=== PATIENT | female | born 1990 | race American Indian/Alaskan Native ===

== ENCOUNTER 2016-06-21 08:56 | Emergency (ER) | payer MEDICAID ==
--- NOTE | 2016-06-21 09:31 | Emergency Department Report ---
Chief Complaint: Vaginal Bleeding Stated Complaint: VAGINAL BLEEDING Time Seen by Provider: 06/21/16 09:27 - HPI History of Present Illness: This is a 26-year-old female who reports that she had confirmed at [place]. She says she had been bleeding since June 08, 2016 on and off. She says she uses 6-7 pads a day that is not saturated. She reports back pain and denies any abdominal pain. Back pain is 6 out of 10. Denies any urinary burning frequency or urgency. Denies any fever or chills. - ROS Review of Systems: All systems are negative unless stated in HPI above. - Exam Vital Signs: Vital Signs 06/21/16 09:04 Temperature 98.5 F Pulse Rate 87 Respiratory 18 Rate Blood Pressure 122/79 O2 Sat by Pulse 100 Oximetry Physical Exam: General: This is a 26-year-old female well-nourished well-developed in no acute distress. Abdomen: Nontender to palpate in all quadrants. No guarding or rebound tenderness. Normal bowel sounds in all quadrants. CV: S1, S2. Regular Rate and rhythm MSE screening note: Focused history and physical exam performed. Due to findings the following was ordered:see the [facility] ED Medical Decision Making - Lab Data Result diagrams: 06/21/16 09:13 - Medical Decision Making Medical decision making: Patient seen by provider in triage area. Appropriate protocol activated and patient to main ED to be seen by physician. ED Disposition for MSE Condition: Stable
[2016-06-21 09:43] LABS: Basophils % (Auto) 0.4 % (0.0-1.8); Eosinophils % (Auto) 3.4 % (0.0-4.3); Hematocrit 38.9 % (30.3-42.9); Hemoglobin 12.6 gm/dl (10.1-14.3); Mean Corpuscular HGB Conc 32 % (30-34); Mean Corpuscular Volume 79 fl (79-97); Platelet Count 372 K/mm3 (140-440); Red Blood Count 4.94 M/mm3 (3.65-5.03); Red Cell Distribution Width 15.1 % (13.2-15.2); White Blood Count 9.1 K/mm3 (4.5-11.0)
[2016-06-21 09:52] LABS: Mean Corpuscular Hemoglobin 26 pg (28-32)
--- NOTE | 2016-06-21 11:47 | Ultrasound Report ---
ULTRASOUND OB LESS THAN 14 WEEKS ULTRASOUND OB TRANSVAGINAL HISTORY: Vaginal bleeding during , back pain. FINDINGS: Beta hCG level measured 101. Transabdominal and transvaginal ultrasound images were obtained. The uterus measures 9 x 4 x 6 cm. No intrauterine or heart rate is demonstrated. The endometrial stripe measures 9.9 mm on transvaginal imaging. The right ovary measures 3.8 x 2.6 x 2.2 cm. 1.4 cm hypoechoic area probably represents a corpus luteum cyst. The left ovary is enlarged measuring 5.6 x 3.4 x 3.9 cm. There is a 1.9 cm cyst with a single internal septation. There is also a 2.7 cm solid hyperechoic mass in the right ovary consistent with a dermoid. No pelvic fluid. IMPRESSION: No intrauterine is demonstrated at this time. This could represent a very early normal or complete . Please note that an ectopic is not entirely excluded at this time. Close interval followup is recommended. Left ovarian cyst and dermoid.
[2016-06-21 12:35] VITALS: BP 118/78
--- NOTE | 2016-06-21 12:48 | Emergency Department Report ---
ED General Adult HPI - General Chief complaint: Vaginal Bleeding Stated complaint: VAGINAL BLEEDING Time Seen by Provider: 06/21/16 09:27 Source: patient Mode of arrival: Ambulatory Limitations: No Limitations - History of Present Illness Initial comments: Patient states that she's had vaginal bleeding for 2 weeks now. She went to the [facility] over a week ago. She states that she had a beta hCG measured at that time and found to be 1:30. She presents here today for continued bleeding. Her repeat hCG is still positive at 101. An ultrasound was obtained. She does not complain of current bleeding nor any pelvic pain. She states that she's had an "when she was young" and a miscarriage 2 years ago. She has never had any prior laparoscopic surgery. -: week(s) Quality: other (does not complain of abdominal or pelvic pain) Associated Symptoms: denies other symptoms Treatments Prior to Arrival: none - Related Data Home Medications Medication Instructions Recorded Confirmed Last Taken No Known Home Medications [No 06/21/16 06/21/16 Unknown Reported Home Medications] Allergies Allergy/AdvReac Type Severity Reaction Status Date / Time No Known Allergies Allergy Unverified 06/21/16 09:04 ED Review of Systems ROS: Stated complaint: VAGINAL BLEEDING Other details as noted in HPI Constitutional: denies: chills, fever Eyes: denies: eye pain, eye discharge, vision change ENT: denies: ear pain, throat pain Respiratory: denies: cough, shortness of breath, wheezing Cardiovascular: denies: chest pain, palpitations Endocrine: no symptoms reported Gastrointestinal: denies: abdominal pain, nausea, diarrhea Genitourinary: abnormal menses. denies: urgency, dysuria, discharge Musculoskeletal: denies: back pain, joint swelling, arthralgia Skin: denies: rash, lesions Neurological: denies: headache, weakness, paresthesias Psychiatric: denies: anxiety, depression Hematological/Lymphatic: denies: easy bleeding, easy bruising ED Past Medical Hx - Past Medical History Previous Medical History?: Yes Additional medical history: miscarriage x 1 - Surgical History Past Surgical History?: Yes Additional Surgical History: - Social History Smoking Status: Current Every Day Smoker Substance Use Type: Alcohol, Prescribed - Medications Home Medications: Home Medications Medication Instructions Recorded Confirmed Last Taken Type No Known Home Medications [No 06/21/16 06/21/16 Unknown History Reported Home Medications] ED Physical Exam - General Limitations: No Limitations General appearance: alert, in no apparent distress - Head Head exam: Present: atraumatic, normocephalic - Eye Eye exam: Present: normal appearance. Absent: scleral icterus - ENT ENT exam: Present: mucous membranes moist - Neck Neck exam: Present: normal inspection - Respiratory Respiratory exam: Present: normal lung sounds bilaterally. Absent: respiratory distress - Cardiovascular Cardiovascular Exam: Present: regular rate, normal rhythm. Absent: systolic murmur, diastolic murmur, rubs, gallop - GI/Abdominal GI/Abdominal exam: Present: soft, normal bowel sounds. Absent: distended, tenderness, guarding, rebound, rigid, mass, bruit, pulsatile mass, hernia - Extremities Exam Extremities exam: Present: normal inspection - Back Exam Back exam: Present: normal inspection - Neurological Exam Neurological exam: Present: alert, oriented X3, CN II-XII intact. Absent: motor sensory deficit - Psychiatric Psychiatric exam: Present: normal affect, normal mood - Skin Skin exam: Present: warm, dry, intact, normal color. Absent: rash ED Course Vital Signs 06/21/16 06/21/16 09:04 12:33 Temperature 98.5 F 98.3 F Pulse Rate 87 88 Respiratory 18 18 Rate Blood Pressure 122/79 Blood Pressure 118/78 [Right] O2 Sat by Pulse 100 100 Oximetry ED Medical Decision Making - Lab Data Result diagrams: 06/21/16 09:13 Laboratory Results - last 24 hr 06/21/16 06/21/16 06/21/16 09:13 09:13 09:13 WBC 9.1 RBC 4.94 Hgb 12.6 Hct 38.9 MCV 79 MCH 26 L MCHC 32 RDW 15.1 Plt Count 372 Lymph % (Auto) 26.1 [place] % (Auto) 7.5 H Eos % (Auto) 3.4 Baso % (Auto) 0.4 Lymph # 2.4 [place] # 0.7 Eos # 0.3 Baso # 0.0 Seg Neutrophils % 62.6 Seg Neutrophils # 5.7 HCG, Quant 101.1 H Blood Type O POSITIVE Antibody Screen Negative - Radiology Data Radiology results: report reviewed interpreted by me: No intrauterine - Medical Decision Making The patient stratifies to follow-up with repeat beta hCGs. The risk of ectopic has been explained. Patient will follow-up at [place]. Critical care attestation.: If time is entered above; I have spent that time in minutes in the direct care of this critically ill patient, excluding procedure time. ED Disposition Clinical Impression: First trimester bleeding Disposition: DISCHARGED TO HOME OR SELFCARE Is pt being admited?: No Does the pt Need Aspirin: No Condition: Stable Time of Disposition: 13:55
== END 2016-06-21 14:31 | disposition home or self-care (01) ==
LOC: ED 08:56
DX: O20.9 Hemorrhage in early pregnancy, unspecified (principal); Z3A.00 Weeks of gestation of pregnancy not specified; F17.200 Nicotine dependence, unspecified, uncomplicated
CPT/HCPCS: 36415; 76801; 76817; 84702; 85025; 86850; 86900; 86901

== ENCOUNTER 2018-01-24 18:27 | Emergency (ER) | payer MEDICAID ==
[2018-01-24 18:34] VITALS: BP 151/84
[2018-01-24] MEDS ORDERED: MOTRIN PO ONE (20:58)
[2018-01-24] MEDS ORDERED: PROVENTIL IH ONE (20:58)
--- NOTE | 2018-01-24 20:58 | Emergency Department Report ---
- General Chief Complaint: Upper Respiratory Infection Stated Complaint: ASMTHMA/SOB/CHECK UP Time Seen by Provider: 01/24/18 20:53 Source: patient Mode of arrival: Ambulatory Limitations: No Limitations - History of Present Illness Initial Comments: 27-year-old -Iranian female comes in for cough congestion and shortness of breath since yesterday. Patient admits to nasal congestion and body aches cough and sore throat. Patient is able to speak in complete sentences. Patient also reports some old blood in the vaginal area using panty liner. Patient's last menstrual. Was 01/02/2018. She does not have a primary care provider. She reports that she ran out of her asthma medicine and she usually needs it only if she gets a cold. MD Complaint: cough, sore throat, rhinorrhea, nasal congestion -: days(s) (1) Severity: mild Consistency: intermittent Improves With: other (is not tried anything) Associated Symptoms: nasal congestion, sore throat, cough, shortness of breath Treatments Prior to Arrival: none - Related Data Previous Rx's Medication Instructions Recorded Last Taken Type ALBUTEROL Inhaler [ProAir HFA 2 puff IH QID PRN #1 inhalation 01/24/18 Unknown Rx Inhaler] Cetirizine HCl [ZyrTEC] 10 mg PO QDAY #30 capsule 01/24/18 Unknown Rx Fluticasone [Flonase] 1 spray NS QDAY #1 bottle 01/24/18 Unknown Rx Allergies Allergy/AdvReac Type Severity Reaction Status Date / Time No Known Allergies Allergy Verified 01/24/18 18:32 ED Review of Systems ROS: Stated complaint: ASMTHMA/SOB/CHECK UP Other details as noted in HPI Constitutional: malaise Eyes: denies: eye pain, eye discharge, vision change ENT: throat pain, congestion. denies: ear pain Respiratory: cough Cardiovascular: denies: chest pain, palpitations Endocrine: no symptoms reported Gastrointestinal: denies: abdominal pain, nausea, diarrhea Genitourinary: denies: urgency, dysuria, discharge Musculoskeletal: denies: back pain, joint swelling, arthralgia Skin: denies: rash, lesions Neurological: denies: headache, weakness, paresthesias Psychiatric: denies: anxiety, depression Hematological/Lymphatic: denies: easy bleeding, easy bruising ED Past Medical Hx - Past Medical History Hx Asthma: Yes Additional medical history: miscarriage x 1 - Surgical History Additional Surgical History: - Social History Smoking Status: Current Every Day Smoker Substance Use Type: Alcohol - Medications Home Medications: Home Medications Medication Instructions Recorded Confirmed Last Taken Type ALBUTEROL Inhaler [ProAir HFA 2 puff IH QID PRN #1 inhalation 01/24/18 Unknown Rx Inhaler] Cetirizine HCl [ZyrTEC] 10 mg PO QDAY #30 capsule 01/24/18 Unknown Rx Fluticasone [Flonase] 1 spray NS QDAY #1 bottle 01/24/18 Unknown Rx ED Physical Exam - General Limitations: No Limitations General appearance: alert, in no apparent distress - Head Head exam: Present: atraumatic, normocephalic - Eye Eye exam: Present: PERRL, EOMI - ENT ENT exam: Present: mucous membranes moist - Neck Neck exam: Present: normal inspection, full ROM. Absent: lymphadenopathy - Respiratory Respiratory exam: Present: wheezes - Cardiovascular Cardiovascular Exam: Present: regular rate, normal rhythm. Absent: systolic murmur, diastolic murmur, rubs, gallop - GI/Abdominal GI/Abdominal exam: Present: soft, normal bowel sounds - Extremities Exam Extremities exam: Present: normal inspection - Back Exam Back exam: Present: normal inspection - Neurological Exam Neurological exam: Present: alert, oriented X3 - Psychiatric Psychiatric exam: Present: normal affect, normal mood - Skin Skin exam: Present: warm, dry, intact, normal color. Absent: rash ED Course Vital Signs 01/24/18 18:32 Temperature 99.9 F H Pulse Rate 114 H Respiratory 16 Rate Blood Pressure 151/84 O2 Sat by Pulse 97 Oximetry ED Medical Decision Making - Radiology Data Radiology results: report reviewed, image reviewed FINAL REPORT PROCEDURE: XR CHEST ROUTINE 2V TECHNIQUE: PA and lateral chest radiographs were obtained. CPT 67779 HISTORY: back pain with breathing COMPARISON: No prior studies are available for comparison. FINDINGS: Heart: Normal. Mediastinum/Vessels: Normal. Lungs/Pleural space: Normal. Bony thorax: No acute osseous abnormality. Other: IMPRESSION: Normal examination. Transcribed By: [facility] [place] Dictated By: MILADY JESSICA Electronically Authenticated By: MILADY JESSICA Signed Date/Time: 01/24/182331 DD/ 31 TD/TT: 01/24/182 - Medical Decision Making Patient has been evaluated with this provider in fast track. Patient is given ibuprofen for pain management Patient's given a nebulizer treatment for the wheeze. Patient is given Tessalon Perles for cough. Critical care attestation.: If time is entered above; I have spent that time in minutes in the direct care of this critically ill patient, excluding procedure time. ED Disposition Clinical Impression: Allergic rhinitis Qualifiers: Allergic rhinitis trigger: unspecified Allergic rhinitis seasonality: seasonal Qualified Code(s): J30.2 - Other seasonal allergic rhinitis Disposition: - TO HOME OR SELFCARE Is pt being admited?: No Does the pt Need Aspirin: No Condition: Stable Instructions: Allergic Rhinitis (ED) Additional Instructions: Take medication as prescribed. If her symptoms persist follow up with your primary care provider. Prescriptions: ALBUTEROL Inhaler [ProAir HFA Inhaler] 2 puff IH QID PRN #1 inhalation PRN Reason: Shortness Of Breath Cetirizine HCl [ZyrTEC] 10 mg PO QDAY #30 capsule Fluticasone [Flonase] 1 spray NS QDAY #1 bottle Referrals: PRIMARY CARE, [Primary Care Provider] - 3-5 Days [facility] [Provider Group] - 3-5 Days Forms: Work/School Release Form(ED), Accompanied Note
[2018-01-24] MEDS ORDERED: DELTASONE PO ONE (20:59)
[2018-01-24] MEDS ORDERED: TESSALON PERLES PO ONE (21:00)
--- NOTE | 2018-01-24 23:40 | XRay Report ---
FINAL REPORT PROCEDURE: XR CHEST ROUTINE 2V TECHNIQUE: PA and lateral chest radiographs were obtained. CPT 20895 HISTORY: back pain with breathing COMPARISON: No prior studies are available for comparison. FINDINGS: Heart: Normal. Mediastinum/Vessels: Normal. Lungs/Pleural space: Normal. Bony thorax: No acute osseous abnormality. Other: IMPRESSION: Normal examination.
== END 2018-01-24 23:50 | disposition home or self-care (01) ==
LOC: ED 18:27
DX: J30.2 Other seasonal allergic rhinitis (principal); J45.909 Unspecified asthma, uncomplicated; F17.200 Nicotine dependence, unspecified, uncomplicated
CPT/HCPCS: 71046; 99283; J7512